=== PATIENT | male | born 1985 | race Caucasian/White ===

== ENCOUNTER 2016-10-02 17:07 | Emergency (ER) | payer SELFPAY ==
[~2016-10-02] VITALS: Ht 175.3 cm; Wt 70.9 kg
[2016-10-02 17:09] VITALS: BP 118/70
== END 2016-10-02 19:17 | disposition home or self-care (01) ==
LOC: ED 19:11
DX: S83.422A Sprain of lateral collateral ligament of left knee, initial encounter (principal); Z88.2 Allergy status to sulfonamides; V28.4XXA Motorcycle driver injured in noncollision transport accident in traffic accident, initial encounter; Y93.55 Activity, bike riding; Y92.488 Other paved roadways as the place of occurrence of the external cause; Y99.8 Other external cause status
CPT/HCPCS: 99284